=== PATIENT | female | born 1990 | race Caucasian/White ===

== ENCOUNTER 2021-03-04 17:40 | Inpatient (IN) | payer OTHER ==
[2021-03-04 18:09] VITALS: BMI 37.2
[2021-03-04] MEDS ORDERED: BUTORPHANOL TARTRATE 1 MG/ML VIAL IVPB PRN (20:25)
[2021-03-04] MEDS ORDERED: PROMETHAZINE HCL 25 MG/1 ML VIAL IVPUSH ONE (20:25)
[2021-03-04] MEDS ORDERED: DINOPROSTONE 10 MG VAGINAL SUPPOSITORY VG ONE (20:27)
[2021-03-04] MEDS ORDERED: ELECTROLYTE-148 SOLN 1,000 ML IV SCH (20:30)
[2021-03-04 21:00] LABS: BASO % 1.7 % (0-2.0); EOS % 0.5 % (0-4.5); HEMATOCRIT 34.5 % (32.4-45.2); HEMOGLOBIN 11.2 GM/dL (10.7-15.3); LYMPH % 11.5 % (8-40); MCH 28.4 pg (25.7-33.7); MCHC 32.6 g/dl (32.0-36.0); MEAN CELL VOLUME 87.1 fl (80-96); MEAN PLT VOLUME 8.5 fl (7.5-11.1); MONO % 6.9 % (3.8-10.2); NEUT % 79.4 % (42.8-82.8); PLATELET COUNT 381 K/MM3 (134-434); RBC 3.96 M/mm3 (3.60-5.2); RDW 14.6 % (11.6-15.6); WHITE BLOOD COUNT 11.4 K/mm3 (4.0-10.0)
[2021-03-04 21:09] LABS: ACTIVATED PTT 26.8 SECONDS (25.2-36.5)
[2021-03-04 21:10] LABS: PROTHROMBIN TIME (PATIENT) 12.1 SEC (9.7-13.0)
[2021-03-04 21:18] LABS: CALCIUM 9.3 mg/dL (8.5-10.1)
[2021-03-04 21:19] LABS: BLOOD UREA NITROGEN 5.5 mg/dL (7-18)
[2021-03-04 21:22] LABS: CREATININE 0.6 mg/dL (0.55-1.3)
[2021-03-05] MEDS ORDERED: BENZOCAINE 28 GM HEMORRHOIDAL OINTMENT TP PRN (08:27)
[2021-03-05] MEDS ORDERED: WITCH HAZEL 50% (TUCKS) 40 PAD/JAR PAD TP PRN (08:27)
[2021-03-05] MEDS ORDERED: BISACODYL 10 MG SUPP.RECT PR PRN (08:27)
[2021-03-05] MEDS ORDERED: ACETAMINOPHEN 325 MG TABLET (FP) PO PRN (08:27)
[2021-03-05] MEDS ORDERED: METHYLERGONOVINE MALEATE 0.2 MG/1 ML AMP IM PRN (08:27)
[2021-03-05] MEDS ORDERED: BENZOCAINE 20% 57 GM BOTTLE TP PRN (08:27)
[2021-03-05] MEDS ORDERED: BUTORPHANOL TARTRATE 2 MG/ML VIAL ONE (08:35)
[2021-03-05] MEDS ORDERED: PROMETHAZINE HCL 25 MG/1 ML VIAL ONE (08:36)
[2021-03-05] MEDS ORDERED: AMPICILLIN - 2 GM in SODIUM CHLORIDE 100 ML IVPB ONE (08:50)
[2021-03-05] MEDS ORDERED: AMPICILLIN SODIUM 2 GM VIAL ONE (09:13)
[2021-03-05] MEDS ORDERED: OXYTOCIN 20 UNITS in 0.9% NS 20 UNIT/1,000 ML INFUS.BAG IV ONE ×2 (09:40→11:37)
[2021-03-05] MEDS ORDERED: OXYTOCIN 20 UNITS in 0.9% NS 20 UNIT/1,000 ML INFUS.BAG IV SCH (10:15)
[2021-03-05] MEDS ORDERED: AMPICILLIN - 1 GM in SODIUM CHLORIDE 100 ML IVPB SCH (12:50)
[2021-03-05] MEDS ORDERED: SENNOSIDES/DOCUSATE COMBO (SENNA PLUS) TABLET (UD) PO SCH (22:00)
[2021-03-05] MEDS: IBUPROFEN 600 MG TABLET (FP) PO PRN (22:04)
[2021-03-06 08:42] LABS: BASO % 0.3 % (0-2.0); EOS % 1.1 % (0-4.5); HEMATOCRIT 29.6 % (32.4-45.2); HEMOGLOBIN 9.7 GM/dL (10.7-15.3); LYMPH % 19.7 % (8-40); MCH 28.7 pg (25.7-33.7); MEAN CELL VOLUME 87.1 fl (80-96); MEAN PLT VOLUME 8.2 fl (7.5-11.1); MONO % 8.3 % (3.8-10.2); NEUT % 70.6 % (42.8-82.8); PLATELET COUNT 313 K/MM3 (134-434); RBC 3.39 M/mm3 (3.60-5.2); RDW 14.4 % (11.6-15.6); WHITE BLOOD COUNT 10.4 K/mm3 (4.0-10.0)
[2021-03-06] MEDS ORDERED: DIPHTH,PERTUSS(ACELL),TET 0.5 ML DISP.SYRIN IM ONE (10:00)
[2021-03-06] MEDS: IBUPROFEN 600 MG TABLET (FP) PO PRN (14:30)
[2021-03-07 11:56] VITALS: BP 116/75; PULSE 91; TEMP 97.5
== END 2021-03-07 11:55 | disposition home or self-care (01) | DRG 560 ==
LOC: JLDR 17:40 → J3W 03-05 12:15
PROVIDERS: ADMIT Obstetrics & Gynecology; ATTEND Obstetrics & Gynecology
PROC: 10E0XZZ Delivery of Products of Conception, External Approach (ICD-10-PCS; principal; 2021-03-05)
DX: O41.03X0 Oligohydramnios, third trimester, not applicable or unspecified (principal); O70.0 First degree perineal laceration during delivery; Z3A.37 37 weeks gestation of pregnancy; Z37.0 Single live birth
CPT/HCPCS: 36415; 59409; 80048; 85025; 85610; 85730; 86780; 86850; 86900; 86901; 90715; C9803; U0003; U0005